=== PATIENT | male | born 1955 | race Two or more races ===

== ENCOUNTER 2017-08-25 19:34 | Inpatient (IN) | payer SELFPAY ==
[~2017-08-25] VITALS: Ht 165.1 cm; Wt 72.2 kg
[2017-08-25 21:49] LABS: Basophils # (auto) 0 uL; Basophils % (auto) 0.3 % (0.0-2.0); Eosinophils # (auto) 0 uL; Eosinophils % (auto) 0.4 % (0.0-7.0); Hematocrit 44.2 % (41.0-53.0); Hemoglobin 15.1 g/dL (13.5-17.5); Lymphocytes # (auto) 1.7 uL; Lymphocytes % (auto) 30.1 % (10.0-50.0); Mean Corpuscular Hemoglobin 31.9 pg (28.0-32.0); Mean Corpuscular Hgb Conc. 34.2 g/dL (32.0-36.0); Mean Corpuscular Volume 93.3 fL (80.0-100.0); Mean Platelet Volume 9.9 fL (6.9-10.8); Monocytes # (auto) 0.7 uL; Monocytes % (auto) 13.1 % (0.0-12.0); Neutrophils # (auto) 3.1 uL; Neutrophils % (auto) 56.1 % (37.0-80.0); Nucleated Red Blood Cells % 0.3 %; Platelet Count (auto) 175 10^3/uL (140-450); Red Cell Distribution Width 13.2 % (11.8-14.3); White Blood Cell 5.6 10^3/uL (4.4-10.8)
[2017-08-25 22:04] LABS: Albumin 3.4 g/dL (3.4-5.0); Anion Gap 8 (5-15); Aspartate Aminotransferase 26 U/L (15-37); BUN/Creatinine Ratio 23.1; Blood Urea Nitrogen 18 mg/dL (7-18); Calcium 8.2 mg/dL (8.5-10.1); Carbon Dioxide 23 mmol/L (21-32); Chloride 103 mmol/L (98-107); GFR African American 130 mL/min; GFR Non-African American 107 mL/min; Glucose 248 mg/dL (74-106); Magnesium 2.4 mg/dL (1.6-2.6); Potassium 4.1 mmol/L (3.5-5.1); Sodium 134 mmol/L (136-145)
[2017-08-25 22:06] LABS: Alkaline Phosphatase 73 U/L (45-117); Bilirubin, Total 0.4 mg/dL (0.2-1.0); Total Protein 7.7 g/dL (6.4-8.2)
[2017-08-26] MEDS ORDERED: NITROGLYCERIN 0.4 MG SL TAB SL ONE (08:45)
[2017-08-26] MEDS ORDERED: ASPirin 325 MG TAB PO ONE (08:45)
[2017-08-26] MEDS ORDERED: LORazepam 0.5 MG TAB PO PRN (09:15)
[2017-08-26] MEDS ORDERED: MORPHINE SULF INJ 2 MG/ML SYRINGE 1ML IV PRN ×2 (09:15)
[2017-08-26] MEDS ORDERED: LACTULOSE 20Gm/30ML SOLN PO PRN (09:15)
[2017-08-26] MEDS ORDERED: ACETAMINOPHEN 500 MG TAB PO PRN (09:15)
[2017-08-26] MEDS ORDERED: DEXTROSE (50%) 50ML SYRG IV PRN (09:15)
[2017-08-26] MEDS ORDERED: PROMETHAZINE HCL 25 MG/ML 1ML IV PRN (09:15)
[2017-08-26] MEDS ORDERED: TEMAZEPAM 15 MG CAP PO PRN (09:15)
[2017-08-26] MEDS ORDERED: NITROGLYCERIN 0.4 MG SL TAB SL PRN (09:15)
[2017-08-26] MEDS ORDERED: HYDROcodone-ACET 5/325MG TAB PO PRN (09:15)
[2017-08-26] MEDS: METOPROLOL TARTRATE 25 MG TAB PO SCH ×2 (09:39→21:36)
[2017-08-26] MEDS: SODIUM CHLORIDE 0.9% 1,000 ML IV SCH ×2 (09:39→22:35)
[2017-08-26] MEDS: ENOXAPARIN SOD 40 MG/0.4 ML SYRINGE SC SCH (09:41)
[2017-08-26] MEDS: NITROGLYCERIN 0.2MG/HR TOPICAL PATCH TD SCH (09:41)
[2017-08-26] MEDS: PANTOPRAZOLE 40 MG TAB PO SCH (09:41)
[2017-08-26 10:21] LABS: Amylase 115 U/L (25-115)
[2017-08-26] MEDS: ACCU-CHEK COMFORT CURVE STRIP VI SCH ×3 (11:27→21:37)
[2017-08-26] MEDS: InsuLIN REG 1unit/0.01ml Soln (100units/ml) SC SCH ×3 (11:31→21:37)
[2017-08-26] MEDS ORDERED: glipiZIDE 5 MG TAB PO ONE (13:00)
[2017-08-26] MEDS ORDERED: ENALAPRIL MALEATE 10 MG TAB PO ONE (13:00)
[2017-08-26] MEDS ORDERED: chlorproMAZINE HCL 25 MG TAB PO PRN (15:30)
[2017-08-26 16:36] LABS: Urine RBC None Seen /hpf (0 - 3)
[2017-08-26 16:37] VITALS: BP 112/61
[2017-08-26 17:03] LABS: Urine Bilirubin Negative (Negative); Urine Blood Negative /uL (Negative); Urine Color Yellow (Yellow); Urine Glucose 4+ mg/dL (Normal); Urine Ketone 1+ (Negative); Urine Nitrite Negative (Negative); Urine Urobilinogen Normal (Negative); Urine pH 5.5 (5.0-8.0)
[2017-08-26 17:16] VITALS: BP 112/61
[2017-08-26] MEDS ORDERED: PNEUMOCOCCAL VACC POLYS 25 MCG/0.5 ML VIAL IM ONE (17:30)
[2017-08-26] MEDS ORDERED: INFLUENZA QUAD 2017-2018 0.5 ML SYRG IM ONE (17:30)
[2017-08-26] MEDS ORDERED: METF-370 PO (18:12)
[2017-08-26] MEDS ORDERED: ENA2.5T PO (18:12)
[2017-08-26] MEDS ORDERED: ENA10T PO (18:19)
[2017-08-26] MEDS: ATORVASTATIN 20 MG TAB PO SCH (21:36)
[2017-08-26 22:00] VITALS: BP 116/79
[2017-08-26] MEDS ORDERED: ATORVASTATIN 20 MG TAB PO SCH (22:00)
[2017-08-27 05:12] VITALS: BP 125/74
[2017-08-27 06:24] LABS: Cholesterol 71 mg/dL (< 200); HDL Cholesterol 35 mg/dL (40-59); LDL Cholesterol 40 mg/dL (< 100); Triglycerides 65 mg/dL (< 150)
[2017-08-27] MEDS: ACCU-CHEK COMFORT CURVE STRIP VI SCH ×4 (06:48→21:49)
[2017-08-27] MEDS: InsuLIN REG 1unit/0.01ml Soln (100units/ml) SC SCH ×4 (06:48→21:50)
[2017-08-27] MEDS: glipiZIDE 5 MG TAB PO SCH (06:48)
[2017-08-27 08:00] VITALS: BP 129/70
[2017-08-27 09:00] VITALS: BP 129/70
[2017-08-27] MEDS: PANTOPRAZOLE 40 MG TAB PO SCH (09:23)
[2017-08-27] MEDS: METOPROLOL TARTRATE 25 MG TAB PO SCH ×2 (09:24→21:49)
[2017-08-27] MEDS: ENALAPRIL MALEATE 10 MG TAB PO SCH (09:25)
[2017-08-27] MEDS: ENOXAPARIN SOD 40 MG/0.4 ML SYRINGE SC SCH (09:25)
[2017-08-27] MEDS: ASPirin 81 mg TAB PO SCH (09:25)
[2017-08-27] MEDS: NITROGLYCERIN 0.2MG/HR TOPICAL PATCH TD SCH (09:26)
[2017-08-27] MEDS: SODIUM CHLORIDE 0.9% 1,000 ML IV SCH (12:30)
[2017-08-27 13:00] VITALS: BP 129/79
[2017-08-27 17:06] VITALS: BP 137/90
[2017-08-27] MEDS: ATORVASTATIN 20 MG TAB PO SCH (21:49)
[2017-08-27 22:00] VITALS: BP 150/88
[2017-08-28] VITALS (7 sets, daily range): BP systolic 117–139; BP diastolic 79–88
[2017-08-28] MEDS: SODIUM CHLORIDE 0.9% 1,000 ML IV SCH ×3 (01:15→21:52)
[2017-08-28] MEDS: glipiZIDE 5 MG TAB PO SCH (06:30)
[2017-08-28] MEDS: ACCU-CHEK COMFORT CURVE STRIP VI SCH ×4 (06:30→21:46)
[2017-08-28] MEDS: InsuLIN REG 1unit/0.01ml Soln (100units/ml) SC SCH ×4 (06:31→21:46)
[2017-08-28] MEDS ORDERED: ADENOSINE 59 MG in GIVE UN-DILUTED 0 ML IV ONE (09:30)
[2017-08-28] MEDS ORDERED: IPRATROPIUM BROM 0.5 MG/2.5ML INH SOL ONE (09:53)
[2017-08-28] MEDS ORDERED: ALBUTEROL SULF 2.5 MG/0.5ML(0.5%) NEB SOLN ONE (09:53)
[2017-08-28] MEDS: PANTOPRAZOLE 40 MG TAB PO SCH (11:31)
[2017-08-28] MEDS: ASPirin 81 mg TAB PO SCH (11:32)
[2017-08-28] MEDS: ENOXAPARIN SOD 40 MG/0.4 ML SYRINGE SC SCH (11:32)
[2017-08-28] MEDS: ENALAPRIL MALEATE 10 MG TAB PO SCH (11:33)
[2017-08-28] MEDS: NITROGLYCERIN 0.2MG/HR TOPICAL PATCH TD SCH (11:33)
[2017-08-28] MEDS: METOPROLOL TARTRATE 25 MG TAB PO SCH ×2 (11:33→21:46)
[2017-08-28] MEDS: ATORVASTATIN 20 MG TAB PO SCH (21:46)
[2017-08-29] MEDS ORDERED: EZ-GAS II GRANULES (RADIOLOGY USE) PO ONE (05:14)
[2017-08-29 05:46] VITALS: BP 123/72
[2017-08-29] MEDS: glipiZIDE 5 MG TAB PO SCH (06:04)
[2017-08-29] MEDS: InsuLIN REG 1unit/0.01ml Soln (100units/ml) SC SCH ×3 (06:04→17:41)
[2017-08-29] MEDS: ACCU-CHEK COMFORT CURVE STRIP VI SCH ×3 (06:05→17:41)
[2017-08-29] MEDS ORDERED: SODIUM CHLORIDE LOCK 10 ML ONE (07:15)
[2017-08-29] MEDS ORDERED: MIDAZOLAM HCL 1MG/1ML-2 ML VIAL ONE (07:15)
[2017-08-29] MEDS ORDERED: fentaNYL CITRATE 100 MCG/2 ML VL ONE (07:15)
[2017-08-29] MEDS ORDERED: ONDANSETRON HCL 4 MG/2 ML VIAL ONE (07:15)
[2017-08-29] MEDS ORDERED: PROPOFOL 10 MG/ML 20 ML IV ONE (07:15)
[2017-08-29 08:00] VITALS: BP 121/79
[2017-08-29 09:02] VITALS: BP 121/79
[2017-08-29] MEDS: NITROGLYCERIN 0.2MG/HR TOPICAL PATCH TD SCH (10:00)
[2017-08-29] MEDS: METOPROLOL TARTRATE 25 MG TAB PO SCH (10:58)
[2017-08-29] MEDS: ENALAPRIL MALEATE 10 MG TAB PO SCH (10:58)
[2017-08-29] MEDS: ASPirin 81 mg TAB PO SCH (10:59)
[2017-08-29] MEDS: PANTOPRAZOLE 40 MG TAB PO SCH (10:59)
[2017-08-29] MEDS: ENOXAPARIN SOD 40 MG/0.4 ML SYRINGE SC SCH (10:59)
[2017-08-29 13:00] VITALS: BP 131/87
[2017-08-29 16:43] VITALS: BP 131/87
[2017-08-29 17:00] VITALS: BP 135/81
[2017-08-29] MEDS: SODIUM CHLORIDE 0.9% 1,000 ML IV SCH (17:15)
== END 2017-08-29 19:03 | disposition home or self-care (01) | DRG 303 ==
LOC: ER 19:34 → TELE 19:35 → TELE-WESTW 08-26 14:17
PROVIDERS: ADMIT Internal Medicine; ATTEND Family Medicine
DX: I25.10 Atherosclerotic heart disease of native coronary artery without angina pectoris (principal); E11.65 Type 2 diabetes mellitus with hyperglycemia; E87.1 Hypo-osmolality and hyponatremia; R06.6 Hiccough; K59.00 Constipation, unspecified; R94.39 Abnormal result of other cardiovascular function study; E86.0 Dehydration; I10 Essential (primary) hypertension; Z82.49 Family history of ischemic heart disease and other diseases of the circulatory system; Z83.3 Family history of diabetes mellitus; Z86.73 Personal history of transient ischemic attack (TIA), and cerebral infarction without residual deficits; Z87.891 Personal history of nicotine dependence; Z23 Encounter for immunization
CPT/HCPCS: 36415; 70450; 71020; 78452; 80053; 80061; 80307; 81001; 82150; 82550; 82962; 83036; 83690; 83735; 84484; 85025; 85379; 85652; 86141; 86850; 86900; 86901; 93005; 93017; 94640; 96360; 96372; J0153; J1815; J2250; J2405; J2704; Q0161